=== PATIENT | female | born 1940 | race Caucasian/White ===

== ENCOUNTER 2020-01-31 09:53 | Emergency (ER) | payer MEDICARE, BC ==
[~2020-01-31] VITALS: Ht 160 cm; Wt 81.4 kg
--- NOTE | 2020-01-31 10:23 | NUR ---
Pt's daughter states that she fell 4 days ago, on Tuesday. Pt is out of the window for trauma charting for CICI Baker.
[2020-01-31] MEDS ORDERED: acetaminophen 325mg tablet PO ONE (10:40)
--- NOTE | 2020-01-31 11:05 | NUR ---
Ultrasound at bedside.
[2020-01-31 11:16] LABS: BASOPHILS # (AUTO) 0.1 X10'3 (0-0.2); BASOPHILS % (AUTO) 0.6 % (0-1); EOSINOPHILS % (AUTO) 0.2 % (0-6); HEMATOCRIT 26.7 % (35.0-45.0); HEMOGLOBIN 8.1 g/dl (12.0-16.0); LYMPHOCYTES # (AUTO) 0.5 X10'3 (1.1-4.8); LYMPHOCYTES % (AUTO) 4.8 % (21-51); MEAN CORPUSCULAR HGB CONC 30.4 g/dL (33.0-36.5); MEAN CORPUSCULAR VOLUME 88.7 FL (78-98); MEAN PLATELET VOLUME 8.7 FL (7.4-10.4); MONOCYTES # (AUTO) 0.9 X10'3 (0-0.9); MONOCYTES % (AUTO) 7.6 % (2-12); NEUTROPHILS # (AUTO) 9.8 X10'3 (1.8-7.7); NEUTROPHILS % (AUTO) 86.8 % (42-75); PLATELET COUNT 237 X10'3 (140-440); RED BLOOD COUNT 3.01 X10'6 (4.20-5.60); RED CELL DISTRIBUTION WIDTH 21.1 % (11.5-14.5); WHITE BLOOD COUNT 11.2 X10'3 (4.5-11.0)
[2020-01-31 11:32] LABS: ALANINE AMINOTRANSFERASE 29 U/L (12-78); ALBUMIN 3.1 G/DL (3.4-5.0); ALBUMIN/GLOBULIN RATIO 0.8 (1.1-1.5); ALKALINE PHOSPHATASE 115 IU/L (46-116); ANION GAP 5 (8-16); ASPARTATE AMINO TRANSFERASE 32 U/L (10-37); BLOOD UREA NITROGEN 62 MG/DL (7-18); BUN/CREATININE RATIO 25.6 (6.6-38.0); CHLORIDE 104 MMOL/L (99-107); CREATININE 2.42 MG/DL (0.40-0.90); GLUCOSE 145 MG/DL (70-104); SODIUM 141 MMOL/L (135-145); TOTAL CARBON DIOXIDE 32.4 MMOL/L (24-32); TOTAL PROTEIN 6.8 G/DL (6.4-8.2); eGFR 19 ML/MIN
--- NOTE | 2020-01-31 11:55 | NUR ---
Pt transported to CT via [facility] with tech.
[2020-01-31 12:05] LABS: CLARITY,URINE CLOUDY (Clear); COLOR,URINE YELLOW (Yellow); GLUCOSE, URINE NEGATIVE (Neg); KETONES,URINE NEGATIVE (Neg); LEUKOCYTE ESTERASE ,URINE NEGATIVE (Neg); NITRITES, URINE NEGATIVE (Neg); OCCULT BLOOD,URINE NEGATIVE (Neg); PH,URINE 5.5 (4.8-8.0); PROTEIN,URINE NEGATIVE (Neg); UROBILINOGEN,URINE 0.2 E.U/dL (0.2-1.0)
[2020-01-31 12:06] LABS: UA COLLECTION TYPE STRAIGHT CATH
[2020-01-31 12:19] LABS: BACTERIA,URINE FEW /HPF (Neg); RBC,URINE 0-2 /HPF (0-2); SQUAMOUS EPITHELIAL CELL,UR MODERATE /LPF (FEW); WBC,URINE 0-4 /HPF (0-4)
[2020-01-31 12:20] LABS: ANISOCYTOSIS 3+; PLATELET ESTIMATE NORMAL
[2020-01-31 12:20] LABS: AMORPHOUS URATES 2+
--- NOTE | 2020-01-31 12:35 | NUR ---
Pt given a pitcher of water per Dr Enriquez's request.
[2020-01-31] MEDS ORDERED: TRAM50TA2 PO (13:00)
[2020-01-31] MEDS ORDERED: traMADol 50MG tablet PO ONE (13:00)
[2020-01-31 13:26] VITALS: BP 120/77
== END 2020-01-31 13:28 | disposition home or self-care (01) ==
LOC: ER 09:53
DX: M25.551 Pain in right hip (principal); I48.91 Unspecified atrial fibrillation; I50.9 Heart failure, unspecified; N18.9 Chronic kidney disease, unspecified; Z88.5 Allergy status to narcotic agent; Z79.899 Other long term (current) drug therapy
CPT/HCPCS: 36415; 72170; 73700; 80053; 81001; 85025; 93005; 93971; 99285

== ENCOUNTER 2020-02-25 00:18 | Emergency (ER) | payer MEDICARE, BC ==
[~2020-02-25] VITALS: Ht 157.5 cm; Wt 82.7 kg
[~2020-02-25 00:18] MED LIST: TRAM50TA2 PO
[2020-02-25 01:47] LABS: ALANINE AMINOTRANSFERASE 34 U/L (12-78); ALBUMIN 3.3 G/DL (3.4-5.0); ALBUMIN/GLOBULIN RATIO 0.8 (1.1-1.5); ALKALINE PHOSPHATASE 146 IU/L (46-116); ANION GAP 5 (8-16); ASPARTATE AMINO TRANSFERASE 50 U/L (10-37); BILIRUBIN,TOTAL 0.7 MG/DL (0.1-1.0); BLOOD UREA NITROGEN 70 MG/DL (7-18); BUN/CREATININE RATIO 24.8 (6.6-38.0); CHLORIDE 107 MMOL/L (99-107); CREATININE 2.82 MG/DL (0.40-0.90); GLUCOSE 162 MG/DL (70-104); POTASSIUM 4.1 MMOL/L (3.5-5.1); SODIUM 143 MMOL/L (135-145); TOTAL CARBON DIOXIDE 31.5 MMOL/L (24-32); TOTAL PROTEIN 7.3 G/DL (6.4-8.2); eGFR 16 ML/MIN
[2020-02-25 01:56] LABS: BASOPHILS # (AUTO) 0.1 X10'3 (0-0.2); EOSINOPHILS # (AUTO) 0.3 X10'3 (0-0.9); EOSINOPHILS % (AUTO) 3.7 % (0-6); HEMATOCRIT 27.5 % (35.0-45.0); HEMOGLOBIN 8.4 g/dl (12.0-16.0); LYMPHOCYTES # (AUTO) 0.7 X10'3 (1.1-4.8); LYMPHOCYTES % (AUTO) 8.6 % (21-51); MEAN CORPUSCULAR HEMOGLOBIN 28.1 PG (27.0-31.0); MEAN CORPUSCULAR HGB CONC 30.4 g/dL (33.0-36.5); MEAN CORPUSCULAR VOLUME 92.4 FL (78-98); MONOCYTES # (AUTO) 0.6 X10'3 (0-0.9); MONOCYTES % (AUTO) 7.7 % (2-12); NEUTROPHILS # (AUTO) 6.1 X10'3 (1.8-7.7); PLATELET COUNT 200 X10'3 (140-440); RED BLOOD COUNT 2.98 X10'6 (4.20-5.60); RED CELL DISTRIBUTION WIDTH 22.1 % (11.5-14.5); WHITE BLOOD COUNT 7.7 X10'3 (4.5-11.0)
--- NOTE | 2020-02-25 02:18 | NUR ---
MD at bedside examing the pt. at this time.
[2020-02-25] MEDS ORDERED: tranexamic acid 100mg/ml inj. TP ONE (02:20)
[2020-02-25 03:09] LABS: ANISOCYTOSIS 3+; PLATELET ESTIMATE NORMAL
[2020-02-25 03:10] LABS: ELLIPTOCYTES FEW; TEAR DROP CELLS FEW
[2020-02-25 03:44] VITALS: BP 117/66
[2020-02-25] MEDS ORDERED: AMOX-422 PO (03:49)
== END 2020-02-25 03:57 | disposition home or self-care (01) ==
LOC: ER 00:18
DX: R04.0 Epistaxis (principal); D64.9 Anemia, unspecified; I48.91 Unspecified atrial fibrillation; I50.9 Heart failure, unspecified; I25.2 Old myocardial infarction; E11.22 Type 2 diabetes mellitus with diabetic chronic kidney disease; N18.9 Chronic kidney disease, unspecified; M10.9 Gout, unspecified; Z79.01 Long term (current) use of anticoagulants; Z86.711 Personal history of pulmonary embolism; Z88.5 Allergy status to narcotic agent; Z79.899 Other long term (current) drug therapy
CPT/HCPCS: 30901; 36415; 80053; 85008; 85025; 85610; 99284

== ENCOUNTER 2020-02-26 15:42 | Emergency (ER) | payer MEDICARE, BC ==
[~2020-02-26] VITALS: Ht 157.5 cm; Wt 82.6 kg
[~2020-02-26 15:42] MED LIST changes: +AMOX-422 PO
--- NOTE | 2020-02-26 17:22 | NUR ---
PA Removed rhino rocket, nose started bleeding
[2020-02-26] MEDS ORDERED: tranexamic acid 100mg/ml inj. TP ONE (17:30)
[2020-02-26] MEDS ORDERED: LIDOcaine/epinephrine/tetracaine TOPICAL sol 3 ML syringe TOP ONE (18:10)
[2020-02-26 19:01] VITALS: BP 112/57
== END 2020-02-26 18:47 | disposition home or self-care (01) ==
LOC: ER 15:44
DX: R04.0 Epistaxis (principal); I48.91 Unspecified atrial fibrillation; I25.2 Old myocardial infarction; E11.22 Type 2 diabetes mellitus with diabetic chronic kidney disease; N18.9 Chronic kidney disease, unspecified; I50.9 Heart failure, unspecified; M10.9 Gout, unspecified; Z86.711 Personal history of pulmonary embolism; Z88.8 Allergy status to other drugs, medicaments and biological substances; Z79.2 Long term (current) use of antibiotics; Z79.899 Other long term (current) drug therapy
CPT/HCPCS: 99283

== ENCOUNTER → 2020-03-03 | Emergency (ER) | payer MEDICARE, BC ==
[~2020-03-03] VITALS: Ht 157.5 cm; Wt 80.0 kg
[~2020-03-03] MED LIST changes: -AMOX-422 PO; -TRAM50TA2 PO; +oxymetazoline 15 ML nasal spray NS ONE; +tranexamic acid 100mg/ml inj. TP ONE
--- NOTE | 2020-03-03 18:30 | NUR ---
assumed care of patient sitting upright in bed with nose clamp in place . all vs .Plan oc care updated with patient and family memeber at bedside
[2020-03-03 18:40] LABS: BASOPHILS # (AUTO) 0.1 X10'3 (0-0.2); BASOPHILS % (AUTO) 0.7 % (0-1); EOSINOPHILS # (AUTO) 0.3 X10'3 (0-0.9); EOSINOPHILS % (AUTO) 3.1 % (0-6); HEMATOCRIT 28.3 % (35.0-45.0); HEMOGLOBIN 8.6 g/dl (12.0-16.0); LYMPHOCYTES # (AUTO) 0.6 X10'3 (1.1-4.8); LYMPHOCYTES % (AUTO) 6.4 % (21-51); MEAN CORPUSCULAR HEMOGLOBIN 27.9 PG (27.0-31.0); MEAN CORPUSCULAR HGB CONC 30.4 g/dL (33.0-36.5); MEAN CORPUSCULAR VOLUME 91.9 FL (78-98); MEAN PLATELET VOLUME 8.5 FL (7.4-10.4); MONOCYTES # (AUTO) 0.7 X10'3 (0-0.9); MONOCYTES % (AUTO) 7.5 % (2-12); NEUTROPHILS # (AUTO) 7.8 X10'3 (1.8-7.7); NEUTROPHILS % (AUTO) 82.3 % (42-75); PLATELET COUNT 240 X10'3 (140-440); RED BLOOD COUNT 3.08 X10'6 (4.20-5.60); RED CELL DISTRIBUTION WIDTH 22.4 % (11.5-14.5); WHITE BLOOD COUNT 9.5 X10'3 (4.5-11.0)
--- NOTE | 2020-03-03 18:50 | NUR ---
pt to bathr oom with daughter via wheel chair . spoke with ELIJAH GUAN ABOUT LIDOCAINE REQUEST PER PT AND FAMILY MEMEBER IF NOSE ROCKET IS PLACED. ELIJAH GUAN AWARE AND IS IN HOPES THAT A RHINO ROCKET WILL NOT BE NEEDED . SET UP AT [facility] REQUESTED
[2020-03-03 19:47] VITALS: BP 143/90
[2020-03-03 21:04] LABS: ANISOCYTOSIS 3+; PLATELET ESTIMATE NORMAL
[2020-03-03 21:06] LABS: ELLIPTOCYTES 1+; HYPOCHROMASIA 1+
== END | disposition home or self-care (01) ==
LOC: ER 15:54
DX: R04.0 Epistaxis (principal); R42 Dizziness and giddiness; R06.02 Shortness of breath; R05 Cough; I48.91 Unspecified atrial fibrillation; I50.9 Heart failure, unspecified; E11.22 Type 2 diabetes mellitus with diabetic chronic kidney disease; N18.9 Chronic kidney disease, unspecified; I25.2 Old myocardial infarction; M10.9 Gout, unspecified; Z86.711 Personal history of pulmonary embolism; Z88.5 Allergy status to narcotic agent
CPT/HCPCS: 85008; 85025; 99284